=== PATIENT | male | born 2000 | race Two or more races ===

== ENCOUNTER 2023-06-05 00:44 | Emergency (ER) | payer SELFPAY ==
[~2023-06-05] VITALS: Ht 170.2 cm; Wt 72.7 kg
[2023-06-05 00:55] VITALS: BP 127/64; PULSE 102; RESP 16; TEMP 98.7
== END 2023-06-05 01:43 | disposition home or self-care (01) ==
LOC: EMS 00:46
DX: S01.01XD Laceration without foreign body of scalp, subsequent encounter (principal); Z48.02 Encounter for removal of sutures; X58.XXXD Exposure to other specified factors, subsequent encounter
CPT/HCPCS: 99281; Z7502